=== PATIENT | male | born 1950 | race Caucasian/White ===

== ENCOUNTER 2021-03-22 08:14 | Inpatient (IN) ==
--- NOTE | 2021-03-15 13:49 | PAT Medication Instructions ---
Medication Instructions Date of Service March 15, 2021 Home Medications Medication Instructions Recorded tadalafil 5 mg tablet (Cialis) 5 mg PO DAILY PRN #30 tab 12/06/18 tamsulosin 0.4 mg capsule 0.4 mg PO HS #90 cap 11/15/20 aspirin 81 mg tablet,delayed release 81 mg PO DAILY multivitamin 1 tab PO QAM methotrexate sodium 2.5 mg tablet 12.5 mg PO WEEKLY tadalafil 5 mg tablet (Cialis) 5 mg PO DAILY PRN esomeprazole magnesium 20 mg capsule,delayed release (Nexium) 40 mg PO QAM abatacept (with maltose) 250 mg intravenous solution (Orencia (with maltose)) 10 mg/kg IV UD cetirizine 10 mg tablet (Zyrtec) 5 mg PO UD PRN tamsulosin 0.4 mg capsule 0.4 mg PO HS fluticasone propionate 50 mcg/actuation nasal spray,suspension 2 spray INTRANASAL UD PRN folic acid 1 mg tablet 1 mg PO QAM olmesartan 40 mg tablet (Benicar) 40 mg PO QAM omega-3 acid ethyl esters 1 gram capsule 1 cap PO QAM ASK your prescriber and surgeon aspirin 81 mg tablet,delayed release 81 mg PO DAILY methotrexate sodium 2.5 mg tablet 12.5 mg PO WEEKLY abatacept (with maltose) 250 mg intravenous solution (Orencia (with maltose)) 10 mg/kg IV UD STOP taking 2 weeks before surgery (or as soon as possible if surgery is within 2 weeks) omega-3 acid ethyl esters 1 gram capsule 1 cap PO QAM DO NOT take the morning of surgery multivitamin 1 tab PO QAM tadalafil 5 mg tablet (Cialis) 5 mg PO DAILY PRN cetirizine 10 mg tablet (Zyrtec) 5 mg PO UD PRN folic acid 1 mg tablet 1 mg PO QAM olmesartan 40 mg tablet (Benicar) 40 mg PO QAM Take morning of surgery With a small sip of water, OTHERWISE NOTHING TO EAT OR DRINK AFTER MIDNIGHT: esomeprazole magnesium 20 mg capsule,delayed release (Nexium) 40 mg PO QAM fluticasone propionate 50 mcg/actuation nasal spray,suspension 2 spray INTRANASAL UD PRN (if needed) Take evening before surgery tadalafil 5 mg tablet (Cialis) 5 mg PO DAILY PRN (if needed) cetirizine 10 mg tablet (Zyrtec) 5 mg PO UD PRN (if needed) tamsulosin 0.4 mg capsule 0.4 mg PO HS fluticasone propionate 50 mcg/actuation nasal spray,suspension 2 spray INTRANASAL UD PRN (if needed) Other Notes If you have any questions please call us at [phone] or [phone] or [phone] or [phone]
--- NOTE | 2021-03-18 08:16 | Anesthesiology Consultation ---
Date of Service March 18, 2021 Assessment & Plan (1) Encounter for pre-operative examination: - Case discussed with Dr. Sharif including CXR findings, he advised given patient's functional status without cardiopulmonary symptoms, no further testing or evaluation needed and patient acceptable to proceed as scheduled. - COVID screening: Per assessment on 03/18/2021: Travel screen negative, no known COVID-19 positive contacts or current COVID-19 related symptoms. Patient vaccinated. Surgeon arranging preop COVID testing, completed today at PAT appointment. Awaiting results. Chart Review Chart Review: Acceptable Risk for Surgery and Patient seen in Pre Admission Testing Teaching & Discussion Pre-Anesthesia Teaching/Discussion Notes: Instructed NPO after midnight before surgery, except medications with 15 cc of water. Medication instructions provided according to the [facility] guidelines. History Surgery Operation Date: 03/22/21 08:00 Proposed Procedures p Right Femoral to Popliteal Artery Bypsas Graft - Thanh Worthy MD Height/Weight Height: 5 ft 10.5 in Weight: 91.9 kg Allergies Allergy/AdvReac Type Severity Reaction Status Date / Time No Known Allergies Allergy Verified 03/15/21 07:59 Medications Home Medications Medication Instructions Recorded Confirmed Last Taken aspirin 81 mg tablet,delayed 81 mg PO DAILY #90 tab 11/28/18 03/15/21 Unknown release multivitamin 1 tab PO QAM 11/28/18 03/15/21 Unknown methotrexate sodium 2.5 mg tablet 12.5 mg PO WEEKLY tab 12/04/18 03/15/21 Unknown tadalafil 5 mg tablet (Cialis) 5 mg PO DAILY PRN #30 tab 12/06/18 03/15/21 Unknown esomeprazole magnesium 20 mg 40 mg PO QAM 06/30/19 03/15/21 Unknown capsule,delayed release (Nexium) abatacept (with maltose) 250 mg 10 mg/kg IV UD ea 10/13/19 03/15/21 Unknown intravenous solution (Orencia (with maltose)) cetirizine 10 mg tablet (Zyrtec) 5 mg PO UD PRN tab 06/24/20 03/15/21 Unknown tamsulosin 0.4 mg capsule 0.4 mg PO HS #90 cap 11/15/20 03/15/21 Unknown fluticasone propionate 50 2 spray INTRANASAL UD PRN 03/15/21 03/15/21 Unknown mcg/actuation nasal spray,suspension folic acid 1 mg tablet 1 mg PO QAM 03/15/21 03/15/21 Unknown olmesartan 40 mg tablet (Benicar) 40 mg PO QAM 03/15/21 03/15/21 Unknown omega-3 acid ethyl esters 1 gram 1 cap PO QAM 03/15/21 03/15/21 Unknown capsule Past Medical History Medical History (Updated 03/18/21 @ 14:41 by Carmen Owens PA-C) AAA (abdominal aortic aneurysm) 3.4 x 3.2 cm saccular abdominal aortic aneurysm with mild atherosclerotic changes on 07/[address] of the chest subpleural reticulation in lung field periphery bilat with associated traction bronchiectasis with both intra and interlobular thickening likely interstitial lung disease per 09/2020 CT, following with pulmonology [facility]- monitoring per pt annually Allergic rhinitis Chronic nasal congestion, post nasal drip and cough productive of mucus BPH (benign prostatic hyperplasia) Chronic GERD controlled, stable per pt Generalized osteoarthritis History of COVID-19 03/2020-achiness, [id number] after several days HTN (hypertension) controlled, stable per pt Rheumatoid arthritis Follows with rheumatology [facility], last visit 11/2020 Patient denies h/o stroke, seizures, heart attack, heart failure, DM, blood clots or blood transfusions. Exercise / Class Metabolic Activity II 4-5 Yardwork/Stairs/Walk up hill (no CP or SOB with 1 FOS) Past Family History Family History Mother Heart disease Lung cancer Father Bone cancer Lung cancer Aunt Rheumatoid arthritis Denies family history of Ovarian cancer Prostate cancer Myocardial infarction Breast cancer Colorectal cancer Past Surgical History Surgical History History of cholecystectomy History of colonoscopy History of esophagogastroduodenoscopy (EGD) History of parotidectomy Past Anesthesia History No Hx of Anesthesia Complications and Other (mother reported difficulty waking- no re-intubation) History of PONV No Hx of PONV and No Hx of Motion Sickness Social History Smoking Status: Current some day smoker tobacco type: cigarettes Smoking cigarettes per day: maybe 1 or 2 cigarettes in the mornings with coffee- advised NPO Do You Dip or Chew Tobacco: No Hx Alcohol Use: Yes Alcohol type: beer and hard liquor alcohol intake frequency: 0-2 drinks per day Hx Substance Use: No substance use type: does not use Review of Systems Snoring and h/o witnessed apneas, reports sleep studies negative per pt. Patient denies chest pain, shortness of breath, dyspnea on exertion, fever, chills, cough, wheezing, or palpitations. Physical Exam Vital Signs Vitals BP 102/68 P 67 TEMP 98.0 SP02 96% on RA RESP 16 Physical Severe limitation of cervical extension-minimal ROM TMD 3.5 finger breaths Mallampati Score 2 Dentition: intact, denies missing, loose or chipped teeth; denies caps/crowns, implants or bridges Lungs: normal respiratory effort. Clear throughout to auscultation, no adventitious breath sounds Cardiac: regular rate and rhythm, no murmurs noted Carotid arteries: negative bruit bilat Extremities: no distal extremity edema Lab Results Anesthesia Preop Results Results Anesthesia Widget: WBC 7.27 K/uL (4.8-10.8) 03/18/21 Hgb 15.4 g/dL (14.0-18.0) 03/18/21 Hct 45.5 % (42-52) 03/18/21 Plt 285 K/uL (130-400) 03/18/21 Na 135 mmol/L (136-145) L 03/18/21 K 4.0 mmol/L (3.5-5.1) 03/18/21 Cl 103 mmol/L (98-107) 03/18/21 CO2 26 mmol/L (21-32) 03/18/21 BUN 27 mg/dl (7-18) H 03/18/21 Creat 1.32 mg/dl (0.6-1.4) 03/18/21 Glucose Level 121 mg/dl (70-99) H 03/18/21 PT 10.4 Seconds (9.0-12.0) 03/18/21 PTT 27.1 Seconds (21.0-31.0) 03/18/21 INR 1.0 (0.9-1.1) 03/18/21 Blood Type A Positive 03/18/21 Antibody Screen NEGATIVE 03/18/21 Testing Electrocardiogram Date: 03/18/21 Normal sinus rhythm, rate 66 bpm. Normal ECG No previous ECGs available Confirmed by Cosmo Michaels. Chest X-Ray Date: 03/18/21 The heart is enlarged noting atherosclerotic calcification of the thoracic aorta. The pulmonary vasculature is noncongested. Enlargement of the central pulmonary arteries suggests pulmonary artery hypertension. Emphysema is noted. Interstitial thickening is likely chronic. There is scarring/atelectasis seen at both lung bases. No airspace consolidation typical for pneumonia or pleural effusion is identified. There is no pneumothorax. The skeletal structures are osteopenic. The bony thorax appears intact. Degenerative changes noted throughout the thoracic spine. Cholecystectomy clips are noted in the upper abdomen. IMPRESSION: Cardiomegaly and emphysema with no acute cardiopulmonary abnormality identified. Stress Test Date: 08/09/18 METS 7. MPHR 86%. The exercise echocardiographic examination is normal without resting left ventricular wall motion abnormalities or inducible ischemia. EF 55-59%. Isolated basal septal hypertrophy with maximal thickness of 1.3 cm. No significant valvular pathology. Aortic root is mildly enlarged. Spectral Doppler signal is inadequate to calculate right ventricular and pulmnary [sic] artery systolic pressure. Cervical Spine X-ray 11/24/2020 [facility]: FINDINGS No visible fracture. AP alignment is normal. No dynamic instability is appreciated. Multilevel degenerative disc disease, most pronounced at C6-C7 with disc space narrowing, subchondral sclerosis and marginal osteophyte formation. Facet and uncovertebral joint arthropathy noted. Suboptimal posi tioning of oblique views to accurately assess for neuroforaminal stenosis. Suspect some degree of narrowing bilaterally. Soft tissues are unremarkable. IMPRESSION No dynamic instability. Degenerative changes as above, most pronounced at C6- C7.
--- NOTE | 2021-03-21 15:10 | History & Physical Report ---
Date of Service March 21, 2021 Assessment & Plan (1) Popliteal artery embolism, right: Plan: Popliteal aneurysm At this point his anterior tibial artery on the right has a high origin. This makes him a bad candidate for an endograft. He will need a femoral-popliteal bypass with ligation of the popliteal artery aneurysm on the right. The left side being its a small size we will continue to follow this conservatively. He understands the risks options and benefits of repairing the popliteal artery aneurysm with a femoral-popliteal bypass. He is agreeable to go ahead with the right femoral-popliteal bypass graft. History of Present Illness Chief Complaint: Right Popliteal artery aneurysm Primary Care Provider: Colten Evans DO Mr. English is a middle-aged male who was seen in consultation for an incidentally noted popliteal artery aneurysm. Patient states that he went to see his orthopod for evaluation of right knee discomfort that he had been experiencing. He also noted some swelling in the right knee and leg. 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 Patient states that he did not know of this aneurysm prior to this. He does state however that he has been undergoing regular aortoiliac ultrasound surveillance for an abdominal aortic aneurysm for about 6 years. Patient states that his right knee pain and swelling has improved in the last 1 to 2 weeks. He states he did not have a known definite injury to his right knee. Patient states that he had a spine/disc injury many years ago which has caused atrophy of the muscles in his left calf, but does not cause him chronic pain. Patient denies other complaints at this time including headaches, fever, chills, chest pain, shortness of breath, abdominal pain, nausea, vomiting, rest pain, claudication, nonhealing wounds or ulcers, discoloration of the feet or toes, other complaints. Allergies Allergy/AdvReac Type Severity Reaction Status Date / Time No Known Allergies Allergy Verified 03/15/21 07:59 Home Medications Medication Instructions Recorded Confirmed Type aspirin 81 mg tablet,delayed 81 mg PO DAILY #90 tab 11/28/18 03/15/21 History release multivitamin 1 tab PO QAM 11/28/18 03/15/21 History methotrexate sodium 2.5 mg tablet 12.5 mg PO WEEKLY tab 12/04/18 03/15/21 History tadalafil 5 mg tablet (Cialis) 5 mg PO DAILY PRN #30 tab 12/06/18 03/15/21 Rx esomeprazole magnesium 20 mg 40 mg PO QAM 06/30/19 03/15/21 History capsule,delayed release (Nexium) abatacept (with maltose) 250 mg 10 mg/kg IV UD ea 10/13/19 03/15/21 History intravenous solution (Orencia (with maltose)) cetirizine 10 mg tablet (Zyrtec) 5 mg PO UD PRN tab 06/24/20 03/15/21 History tamsulosin 0.4 mg capsule 0.4 mg PO HS #90 cap 11/15/20 03/15/21 Rx fluticasone propionate 50 2 spray INTRANASAL UD PRN 03/15/21 03/15/21 History mcg/actuation nasal spray,suspension folic acid 1 mg tablet 1 mg PO QAM 03/15/21 03/15/21 History olmesartan 40 mg tablet (Benicar) 40 mg PO QAM 03/15/21 03/15/21 History omega-3 acid ethyl esters 1 gram 1 cap PO QAM 03/15/21 03/15/21 History capsule Past Med/Surg History Medical History AAA (abdominal aortic aneurysm) 3.4 x 3.2 cm saccular abdominal aortic aneurysm with mild atherosclerotic changes on 07/[address] of the chest subpleural reticulation in lung field periphery bilat with associated traction bronchiectasis with both intra and interlobular thickening likely interstitial lung disease per 09/2020 CT, following with pulmonology [facility]- monitoring per pt annually Allergic rhinitis Chronic nasal congestion, post nasal drip and cough productive of mucus BPH (benign prostatic hyperplasia) Chronic GERD controlled, stable per pt Generalized osteoarthritis History of COVID-19 03/2020-achiness, [id number] after several days HTN (hypertension) controlled, stable per pt Rheumatoid arthritis Follows with rheumatology [facility], last visit 11/2020 Surgical History History of cholecystectomy History of colonoscopy History of esophagogastroduodenoscopy (EGD) History of parotidectomy Family History Mother Heart disease Lung cancer Father Bone cancer Lung cancer Aunt Rheumatoid arthritis Denies family history of Ovarian cancer Prostate cancer Myocardial infarction Breast cancer Colorectal cancer Social History Smoking Status: Current some day smoker Age Started Using Tobacco: 19; Cigarettes Per Day: maybe 1 or 2 cigarettes in the mornings with coffee-advised NPO; Second Hand Exposure: Yes; Hx Alcohol Use: Yes Alcohol type: beer and hard liquor Hx Substance Use: No Preferred Language: Portuguese Communication Ability: Effective Visual Impairment: No Limitations Hearing Ability: Normal Road Patcher Required: No Beliefs That Will Affect Care: None marital status: Current Living Situation: Spouse current occupational status: retired Feels Safe at Home: Yes Childhood Exposure to Second-Hand Smoke: Yes caffeine: Yes (coffee) during the past year weight has: remained stable Dental Care, Regularly: Yes Physical Activity Frequency: Daily Seatbelt Use: always Sunscreen Use: No Do you think of yourself as: straight/heterosexual Assistive Devices: Glasses Physical Exam Physical Exam: Constitutional: In general patient is a healthy-appearing well- nourished well-developed middle-aged male no distress. He is alert and oriented without any focal deficits. Has normocephalic and atraumatic. Eyes are EOMI. Neck is supple nontender with a midline trachea. Heart is regular, lungs are decreased but clear throughout. Abdomen is soft and nontender with normoactive bowel sounds in all 4 quadrants. I am not able to appreciate his pulsatile mass due to body habitus. Brachial radial and femoral pulses are +3. Right popliteal pulse is palpable. Lower extremity distal pulses are +1. He has b risk capillary refill and no sign of distal ischemia. His left calf muscles are significantly atrophied in comparison to his right. There is no edema noted. There is no erythema.
[~2021-03-22 08:14] MED LIST: ACETAMINOPHEN 1000 MG/100 ML IV IV ONE; BUPIVACAINE 0.5 % 5 MG/1 ML MPF 30ML VIAL ONE; EPINEPHrine INJ 1 MG/ML AMP ONE; GELATIN SPONGE SZ 100 ONE; HEPARIN (PORCINE) 1000 UNIT/ML 10 ML (CATH LAB USE ONLY) ONE; LACTATED RINGER'S 1,000 ML IV SCH; LIDOCAINE 1% LOCAL 20 ML VIAL ONE; LIDOCAINE 2% 2 ML VIAL/AMP(20MG/ML) INFIL ONE; MIDAZOLAM HCL 1 MG/ML 2ML VIAL ONE; ONDANSETRON INJ 2 MG/ML 2 ML VIAL ONE; PAPAVERINE HCL INJ 30 MG/ML 2 ML VIAL ONE; PROPOFOL IV EMULSION 10 MG/ML 20 ML VIAL IV ONE; ROCURONIUM BROMIDE 10 MG/ML 5 ML VIAL IV ONE; THROMBIN 5000 UNITS KIT ONE; THROMBIN FOR SOLN 20000 UNIT KIT ONE; ceFAZolin 2000MG 2,000 MG/15 ML SYR IV SCH; fentaNYL citrate 100 MCG/2 ML VIAL ONE
[2021-03-22] MEDS ORDERED: fentaNYL citrate 100 MCG/2 ML VIAL IV PRN (08:27)
[2021-03-22] MEDS ORDERED: ONDANSETRON INJ 2 MG/ML 2 ML VIAL IV PRN (08:27)
[2021-03-22] MEDS ORDERED: ePHEDrine sulfate 50 MG/ML AMP IV PRN (08:27)
[2021-03-22] MEDS ORDERED: ATROPINE SULFATE 0.1 MG/ML 10ML SYR IV PRN (08:27)
--- NOTE | 2021-03-22 09:23 | History & Physical Bridge Note ---
Date of Service March 22, 2021 History & Physical Bridge Note I have examined the patient, reviewed the History & Physical and in the interval since the performance of the History & Physical I have noted the following changes of clinical significance: no changes noted
[2021-03-22] MEDS ORDERED: fentaNYL citrate 100 MCG/2 ML VIAL ONE ×3 (10:21→13:35)
[2021-03-22] MEDS ORDERED: HEPARIN (PORCINE) 1000 UNIT/ML 10 ML (CATH LAB USE ONLY) IV ONE (11:22)
[2021-03-22] MEDS ORDERED: HEPARIN SOD (PORCINE) 1000 UNIT/ML ONE ×3 (11:23→12:45)
[2021-03-22] MEDS ORDERED: ROCURONIUM BROMIDE 10 MG/ML 5 ML VIAL IV ONE ×5 (11:30→12:46)
[2021-03-22] MEDS ORDERED: SUGAMMADEX SODIUM 200 MG/2 ML VIAL IV ONE (12:59)
--- NOTE | 2021-03-22 13:23 | Operative Report ---
Post Operative Report Pre & Post Diagnosis Operation Date: 03/22/21 10:30 Pre-Op Diagnosis: Right Popliteal Artery Aneurysm Post-Op Diagnosis: Right Popliteal Artery Aneurysm I identified the patient and participated in the time-out.: Yes Procedure Operation Date: 03/22/21 10:30 Actual Procedures p Right Femoral to Popliteal Artery Bypass with reverse saphenous vein, reimplantation of anterior tibial artery (Right) - Thanh Worthy MD Surgeon Thanh Worthy MD Director Of Student Financial Aid [place],PAC Estimated Blood Loss 150 Findings Consistent with Post-Op Diagnosis Specimens none Anesthesia Type General Complications none Disposition Accompanied Patient To Recovery: No Disposition: Recovery Room Indications This is a 70-year-old male who was found to have a popliteal artery aneurysm in the right leg which is grown. Repair is recommended. He is not an endovascular candidate due to the takeoff of the anterior tibial artery is fairly high. I have discussed the risks options and benefits of the procedure with the patient. The patient understands the risks options and benefits and agrees to the procedure. Description of Procedure The patient was taken the operating placed supine position. After general anesthesia was accomplished the right leg was prepped and draped in a sterile manner. Longitudinal incision was made over the saphenous vein in the lower thigh. Sizing was identified at that level it was of good caliber. Dissection was carried down to where the popliteal artery was identified just beyond the adductor hiatus. None the lower part of the dissection we could see the start of the aneurysm. The superficial femoral artery did take a angulation at that point towards the aneurysm. We then unroofed the saphenous vein from the upper thigh down to the upper calf. At the level of the upper calf as the psych section was deepened and the popliteal arteries identified. The anterior tibial artery was also identified coming off high and just beyondthe bottom of the aneurysm. There was a short distance seen between the bottom of the aneurysm and the take of the anterior tibial artery. It was decided that we would do a femoral-popliteal bypass to the distal popliteal and then reimplant the anterior tibial artery. Saphenous vein was then harvested in its entirety and for the length of the incision. All side branches were ligated. Once was harvested was gently dilated on the back table. No extravasation of saline was seen. Patient was then heparinized at that time. After adequate residuals accomplished the saphenous vein was brought to the operative field. A tunnel was then made between the heads of the gastrocnemius from the upper to the lower incision the saphenous vein passed through the tunnel. It was reversed in the appropriate fashion. The proximal popliteal arteries then clamped proximal distally in the distal thigh just beyond the adduc adductor hiatus. A longitudinal arteriotomy was then made. The artery is widely patent with some slight thickening but no narrowing was noted. The saphenous vein was then beveled in appropriate fashion and an end-to-side anastomosis accomplished using 5-0 Prolene suture in the usual vascular fashion. Once this was completed the popliteal artery was then clamped proximal distally. Longitudinal arteriotomy was then made. Again slight thickening was seen of the artery but no significant narrowing was noted. The saphenous vein was then beveled the appropriate fashion. End-to-side anastomosis accomplished in the saphenous vein in the distal popliteal artery with using a 6-0 Prolene suture in usual vascular fashion. Prior to completing the closure backbleeding for bleeding was allowed to occur to find few sutures in place and securely tied. Clamps were removed. Adequate hemostasis was noted of the suture lines. We then ligated the popliteal artery proximally just beyond the aneurysm sac as well as the anterior tibial artery just beyond its o rigin. The anterior tibial artery was then clamped and divided. The saphenous vein graft was then reclamped just proximal to its anastomosis to the popliteal artery. Longitudinal venotomy was performed. An end-to-side anastomosis was then accomplished between the anterior tibial artery and the saphenous vein reimplanting the artery into the bypass. This was done with 7-0 Prolene. This was done in the usual vascular fashion. Prior to completing the closure backbleeding and forebleeding was allowed to occur. Final few sutures were then placed and securely tied. Clamps were removed. Excellent flow was seen through the anterior tibial artery and through the bypass graft. We then ligated the popliteal artery just beyond the proximal anastomosis. No Doppler flow was heard in the popliteal artery beyond the ligation. Patient had good palpable dorsalis pedis and posterior tibial artery pulses at this point. Wound was irrigated with antibiotic solution. After adequate hemostasis was obtained, the wound was closed in usual fashion using running 3-0 Vicryl suture for subcutaneous layer and alejandra for the skin. Sterile dressings were placed on the wound.The patient left the operation room in satisfactory condition and tolerated the procedure well. All needle and sponge counts were correct at the end of the procedure. Sherrie Salinas Pac assisted due to lack of resident availability and was necessary for positioning, draping, retraction, wound closure deep layers, subcutaneous tissue, and skin closure and was necessary for assisting with the case. I attest to the content of the Intraoperative Record and any orders documented therein. Any exceptions are noted below.
[2021-03-22] MEDS ORDERED: MoRPHine SULFATE 4 MG/ML 1 ML CARP\\VIAL IV PRN (14:49)
[2021-03-22] MEDS ORDERED: [UNRECOGNIZED DRUG - OTHER] IV SCH (14:49)
[2021-03-22] MEDS ORDERED: CETIRIZINE HCL 10 MG TABLET PO PRN (14:49)
[2021-03-22] MEDS ORDERED: FLUTICASONE PROPIONATE NA SPR 16 GM BTL PRN (14:49)
[2021-03-22 15:17] LABS: Basophils # (auto) 0.02 K/uL (0-0.2); Basophils % (auto) 0.2 %; Eosinophils # (auto) 0.07 K/uL (0-0.5); Eosinophils % (auto) 0.7 %; Hematocrit (blood only) 41.3 % (42-52); Hemoglobin 13.9 g/dL (14.0-18.0); Immature Granulocytes # (auto) 0.01 K/uL (0.00-0.02); Immature Granulocytes % (auto) 0.1 %; Lymphocytes # (auto) 2.12 K/uL (1.2-3.4); Lymphocytes % (auto) 21.1 %; Mean Corpuscular Hemoglobin 31.2 pg (25-34); Mean Corpuscular Volume 92.6 fL (80-100); Monocytes # (auto) 0.71 K/uL (0.11-0.59); Monocytes % (auto) 7.1 %; Neutrophils # (auto) 7.13 K/uL (1.4-6.5); Neutrophils % (auto) 70.8 %; Platelet Count 243 K/uL (130-400); RDW Standard Deviation 47.2 fL (36.4-46.3); Red Blood Count 4.46 M/uL (4.7-6.1); White Blood Count 10.06 K/uL (4.8-10.8)
[2021-03-22 15:23] LABS: Mean Corpuscular Hgb Conc 33.7 g/dL (32-36)
[2021-03-22] MEDS: D5W AND 1/2NSS 1,000 ML IV SCH ×2 (15:55→23:47)
[2021-03-22] MEDS: oxyCODONE/ACETAMINOPHEN 5mg/325mg TAB PO PRN ×2 (15:56→23:43)
[2021-03-22] MEDS: TAMSULOSIN HCL 0.4 MG CAP PO SCH (20:10)
[2021-03-22] MEDS: ceFAZolin 2000MG 2,000 MG/15 ML SYR IV SCH (20:44)
[2021-03-23] MEDS: ceFAZolin 2000MG 2,000 MG/15 ML SYR IV SCH (05:38)
[2021-03-23 05:47] LABS: Basophils # (auto) 0.01 K/uL (0-0.2); Basophils % (auto) 0.1 %; Eosinophils % (auto) 1.4 %; Hematocrit (blood only) 38.9 % (42-52); Hemoglobin 13.1 g/dL (14.0-18.0); Immature Granulocytes # (auto) 0.01 K/uL (0.00-0.02); Immature Granulocytes % (auto) 0.1 %; Lymphocytes # (auto) 1.51 K/uL (1.2-3.4); Lymphocytes % (auto) 21.4 %; Mean Corpuscular Hemoglobin 31.5 pg (25-34); Mean Corpuscular Hgb Conc 33.7 g/dL (32-36); Mean Corpuscular Volume 93.5 fL (80-100); Mean Platelet Volume 8.8 fL (7.4-10.4); Monocytes % (auto) 11.3 %; Neutrophils # (auto) 4.63 K/uL (1.4-6.5); Neutrophils % (auto) 65.7 %; Platelet Count 235 K/uL (130-400); RDW Coefficient of Variation 14.2 % (11.5-14.5); RDW Standard Deviation 48.1 fL (36.4-46.3); Red Blood Count 4.16 M/uL (4.7-6.1); White Blood Count 7.06 K/uL (4.8-10.8)
[2021-03-23 06:19] LABS: BUN Creatinine Ratio 17.5 (10-20); Calcium 8.2 mg/dl (8.5-10.1); Creatinine Clr Calc Pharmacy 75.4 ml/min; Est GFR (African American) 82.6 ml/min; Est GFR (Non-African American) 71.3 ml/min
--- NOTE | 2021-03-23 06:33 | Anesthesiology Progress Note ---
Date of Service March 23, 2021 Anesthesia Post Procedure Vital Signs Vital Signs: Temp Pulse Pulse Pulse Resp BP BP 03/23/21 04:32 36.5 C 71 16 129/73 03/22/21 23:20 36.7 C 66 17 124/78 03/22/21 20:00 36.8 C 70 16 124/72 03/22/21 17:51 36.3 C L 73 16 126/74 03/22/21 16:45 36.5 C 64 16 114/71 03/22/21 15:45 36.4 C L 67 16 109/68 03/22/21 15:17 67 18 112/70 03/22/21 14:45 36.5 C 75 16 109/72 03/22/21 14:25 75 16 120/75 03/22/21 14:15 36.7 C 74 16 123/73 03/22/21 14:05 85 16 116/75 03/22/21 13:55 68 16 99/64 L 03/22/21 13:49 36.6 C 70 16 99/58 L 03/22/21 08:56 36.4 C L 69 20 141/85 H 134/83 Pulse Ox 03/23/21 04:32 96 03/22/21 23:20 97 03/22/21 20:00 95 03/22/21 17:51 97 03/22/21 16:45 99 03/22/21 15:45 97 03/22/21 15:17 96 03/22/21 14:45 96 03/22/21 14:25 94 03/22/21 14:15 97 03/22/21 14:05 97 03/22/21 13:55 98 03/22/21 13:49 97 03/22/21 08:56 97 Pain Intensity Bilateral Shoulder: Pain Intensity: 4 Back: Pain Intensity: 6 Transfer of Care Handoff Completed per policy Notes Mental Status: alert / awake / arousable and participated in evaluation Patient Amnestic to Procedure: Yes Nausea / Vomiting: adequately controlled Pain: adequately controlled Airway Patency, RR, SpO2: stable & adequate BP & HR: stable & adequate Hydration State: stable & adequate Anesthetic Complications: no major complications apparent and Pt Satisfied with anesthetic care
[2021-03-23] MEDS: oxyCODONE/ACETAMINOPHEN 5mg/325mg TAB PO PRN ×4 (07:55→23:55)
[2021-03-23] MEDS: FOLIC ACID 1 MG TAB PO SCH (07:56)
[2021-03-23] MEDS: OMEGA-3 (PURIFIED FISH OIL) 1 GM CAP PO SCH (07:56)
[2021-03-23] MEDS: OLMESARTAN MEDOXOMIL 40 MG TAB PO SCH (07:56)
[2021-03-23] MEDS: PANTOprazole 40 MG TAB PO SCH (07:56)
[2021-03-23] MEDS: MULTIVITAMIN TAB PO SCH (07:57)
[2021-03-23] MEDS: ASPIRIN 81 MG ECTAB PO SCH (07:57)
[2021-03-23] MEDS: D5W AND 1/2NSS 1,000 ML IV SCH (10:02)
[2021-03-23] MEDS ORDERED: SODIUM CHLORIDE 0.9% 1000ML 1,000 ML IV SCH (13:29)
--- NOTE | 2021-03-23 16:28 | Surgery Progress Note ---
Date of Service March 23, 2021 Assessment & Plan (1) Popliteal artery aneurysm: Plan: Pt overall doing well post op. Taking PO, voiding since pablo removal, passing flatus, ambulating. Still with post op pain and episodic hypotension today. Discussed with Dr Worthy, 1L NSS bolus ordered. Admission and Anticipated Discharge Date Admission Date: March 22, 2021 Subjective 70 yo m POD #1 after RLE above knee pop to below knee popliteal artery reverse saphenous vein bypass with reimplantation of the anterior tibial artery, seen in f/u today. Pt doing well post op, but did have an episode of lightheadedness and hypotension this afternoon. Hgb stable, BP has been stable other than this single episode. Pt states he did not drink much today. Admits fatigue and RLE incisional pain. Review of Systems Review of Systems: All systems reviewed & are unremarkable except as noted in HPI & below Physical Exam Constitutional: WD/WN, vitals as above healthy appearing and comfortable Respiratory: normal respiratory effort, lungs clear to auscultation Auscultation: + diminished lung sounds Cardiovascular: Rate/Rhythm: regular rate and regular rhythm Vessels: femoral pulses present, posterior tibial pulses present, dorsalis pedis pulses present and radial pulses present; + abnormal peripheral pulses Extremities: normal capillary refill and + edema (mild RLE) Gastrointestinal (Abdomen): Inspection/Auscultation: abdomen normal to inspection and normal bowel sounds Percussion/Palpation: abdomen soft; abdomen nontender Musculoskeletal: no cyanosis or clubbing, extremities motor strength 5/5 Skin: + incision (C/D/I with alejandra) Neurologic: moves all extremities and awake; no focal motor deficits and not confused Psychiatric: A+Ox3, euthymic affect Results & Data ([facility]) Vital Signs (Past 12 Hours) Vital Signs Temp Pulse Resp BP BP Pulse Ox 03/23/21 15:20 36.7 C 79 16 126/74 97 03/23/21 13:17 63 18 126/75 100 03/23/21 12:44 36.4 C L 61 16 93/58 L 98 03/23/21 11:13 36.8 C 75 16 104/65 97 03/23/21 07:31 36.7 C 74 16 133/76 97 03/23/21 04:32 36.5 C 71 16 129/73 96
[2021-03-23] MEDS: ENOXAPARIN INJ 30 MG/0.3 ML SYR SQ SCH (19:55)
[2021-03-23] MEDS: TAMSULOSIN HCL 0.4 MG CAP PO SCH (20:36)
[2021-03-24] MEDS: PANTOprazole 40 MG TAB PO SCH (07:22)
[2021-03-24] MEDS: OLMESARTAN MEDOXOMIL 40 MG TAB PO SCH (07:22)
[2021-03-24] MEDS: ASPIRIN 81 MG ECTAB PO SCH (07:23)
[2021-03-24] MEDS: FOLIC ACID 1 MG TAB PO SCH (07:23)
[2021-03-24] MEDS: MULTIVITAMIN TAB PO SCH (07:23)
[2021-03-24] MEDS: OMEGA-3 (PURIFIED FISH OIL) 1 GM CAP PO SCH (07:23)
[2021-03-24] MEDS: ENOXAPARIN INJ 30 MG/0.3 ML SYR SQ SCH ×2 (07:23→20:49)
[2021-03-24 09:18] LABS: Basophils # (auto) 0.01 K/uL (0-0.2); Basophils % (auto) 0.1 %; Eosinophils % (auto) 1.4 %; Hematocrit (blood only) 40.9 % (42-52); Hemoglobin 13.4 g/dL (14.0-18.0); Immature Granulocytes # (auto) 0.01 K/uL (0.00-0.02); Immature Granulocytes % (auto) 0.1 %; Lymphocytes # (auto) 1.12 K/uL (1.2-3.4); Lymphocytes % (auto) 15.2 %; Mean Corpuscular Hemoglobin 30.9 pg (25-34); Mean Corpuscular Hgb Conc 32.8 g/dL (32-36); Mean Corpuscular Volume 94.5 fL (80-100); Mean Platelet Volume 9.1 fL (7.4-10.4); Monocytes # (auto) 0.94 K/uL (0.11-0.59); Monocytes % (auto) 12.8 %; Neutrophils # (auto) 5.17 K/uL (1.4-6.5); Neutrophils % (auto) 70.4 %; Platelet Count 240 K/uL (130-400); RDW Standard Deviation 48.2 fL (36.4-46.3); Red Blood Count 4.33 M/uL (4.7-6.1); White Blood Count 7.35 K/uL (4.8-10.8)
--- NOTE | 2021-03-24 14:15 | Surgery Progress Note ---
Date of Service March 24, 2021 Assessment & Plan (1) S/P femoral-popliteal bypass surgery: Plan: Bypass working well. Continue OT/PT (2) Right leg swelling: Plan: Will order venous duplex (3) Cellulitis of right lower extremity: Plan: Appears to be a superficial cellulitis post op. Will start on IV antibiotics Admission and Anticipated Discharge Date Admission Date: March 22, 2021 Subjective Patient complaining of incisional pain. Relieved with pain meds. He was ambulating with a walker. Physical Exam Constitutional: WD/WN, vitals as above Cardiovascular: Vessels: posterior tibial pulses present (palpable on right) and dorsalis pedis pulses present (palpable on right) Extremities: + edema (right lower extremity more edematous than expected) Musculoskeletal: Extremities: strength 5/5 throughout Skin: + incision (erythematous along thigh incision) Psychiatric: Orientation: alert and oriented x 3 Results & Data ([facility]) Vital Signs (Past 12 Hours) Vital Signs Temp Pulse Resp BP Pulse Ox 03/24/21 07:18 36.6 C 71 16 108/69 97
[2021-03-24] MEDS: ceFAZolin 2000MG 2,000 MG/15 ML SYR IV SCH ×2 (14:41→20:49)
--- NOTE | 2021-03-24 17:00 | Ultrasound Report ---
ULTRASOUND RIGHT LOWER EXTREMITY VENOUS CLINICAL HISTORY: Right lower extremity edema. COMPARISON STUDY: Right lower extremity venous ultrasound dated 12/29/2020. TECHNIQUE: Real-time, grayscale, and color Doppler sonography of the deep veins of the right lower ex tremity was performed from the inguinal crease to the calf. Compression and augmentation were utilize d. FINDINGS: There is no sonographic evidence of deep venous thrombosis identified in the right lower ex tremity. The common femoral, superficial femoral, and popliteal veins are patent and normally sanford sible. The greater saphenous vein and the profunda femoris vein at the junction with the common femor al vein are clear. The visualized calf veins are patent. 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 IMPRESSION: 1. There is no sonographic evidence of deep venous thrombosis identified in the right lower extremity . 2. A popliteal artery aneurysm is again noted. ACT 112: Negative or not required by law. Electronically signed by: Vin Crowder M.D. 03/24/2021 4:58 PM
[2021-03-24] MEDS: oxyCODONE/ACETAMINOPHEN 5mg/325mg TAB PO PRN ×2 (17:21→22:16)
[2021-03-24] MEDS: TAMSULOSIN HCL 0.4 MG CAP PO SCH (20:49)
[2021-03-25] MEDS: ceFAZolin 2000MG 2,000 MG/15 ML SYR IV SCH (05:49)
[2021-03-25] MEDS ORDERED: metHOTREXate sodium 2.5 MG TAB PO SCH (09:00)
[2021-03-25] MEDS: OLMESARTAN MEDOXOMIL 40 MG TAB PO SCH (09:06)
[2021-03-25] MEDS: PANTOprazole 40 MG TAB PO SCH (09:06)
[2021-03-25] MEDS: ASPIRIN 81 MG ECTAB PO SCH (09:07)
[2021-03-25] MEDS: OMEGA-3 (PURIFIED FISH OIL) 1 GM CAP PO SCH (09:07)
[2021-03-25] MEDS: ENOXAPARIN INJ 30 MG/0.3 ML SYR SQ SCH (09:07)
[2021-03-25] MEDS: MULTIVITAMIN TAB PO SCH (10:41)
[2021-03-25] MEDS: FOLIC ACID 1 MG TAB PO SCH (10:41)
[2021-03-25] MEDS: oxyCODONE/ACETAMINOPHEN 5mg/325mg TAB PO PRN (10:44)
--- NOTE | 2021-03-25 13:10 | Surgery Progress Note ---
Date of Service March 25, 2021 Assessment & Plan (1) Cellulitis of right lower extremity: Plan: Improved with 24 hours of antibiotics (2) S/P femoral-popliteal bypass surgery: Plan: Doing well. Graft working well Can D/C today (3) Right leg swelling: Plan: No DVT present. Edema secondary to surgery Admission and Anticipated Discharge Date Admission Date: March 22, 2021 Subjective Feeling much better today. Walked around the halls without too much difficulty. Physical Exam Constitutional: WD/WN, vitals as above Cardiovascular: Vessels: posterior tibial pulses present and dorsalis pedis pulses present Extremities: + edema (slightly better in right leg) Musculoskeletal: no cyanosis or clubbing, extremities motor strength 5/5 Skin: + incision (less erythema today. minimal drainage) Results & Data ([facility]) Vital Signs (Past 12 Hours) Vital Signs Temp Pulse Resp BP Pulse Ox 03/25/21 07:28 36.5 C 70 14 129/75 95
--- NOTE | 2021-03-29 08:30 | Discharge Summary ---
Date of Service March 29, 2021 Admission HPI Per Admitting Provider Mr. English is a middle-aged male who was seen in consultation for an incidentally noted popliteal artery aneurysm. Patient states that he went to see his orthopod for evaluation of right knee discomfort that he had been experiencing. He also noted some swelling in the right knee and leg. 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 Patient states that he did not know of this aneurysm prior to this. He does state however that he has been undergoing regular aortoiliac ultrasound surveillance for an abdominal aortic aneurysm for about 6 years. Patient states that his right knee pain and swelling has improved in the last 1 to 2 weeks. He states he did not have a known definite injury to his right knee. Patient states that he had a spine/disc injury many years ago which has caused atrophy of the muscles in his left calf, but does not cause him chronic pain. Patient denies other complaints at this time including headaches, fever, chills, chest pain, shortness of breath, abdominal pain, nausea, vomiting, rest pain, claudication, nonhealing wounds or ulcers, discoloration of the feet or toes, other complaints. Admission Exam Per Admitting Provider Constitutional: In general patient is a healthy-appearing well-nourished well- developed middle-aged male no distress. He is alert and oriented without any focal deficits. Has normocephalic and atraumatic. Eyes are EOMI. Neck is supple nontender with a midline trachea. Heart is regular, lungs are decreased but clear throughout. Abdomen is soft and nontender with normoactive bowel sounds in all 4 quadrants. I am not able to appreciate his pulsatile mass due to body habitus. Brachial radial and femoral pulses are +3. Right popliteal pulse is palpable. Lower extremity distal pulses are +1. He has brisk capillary refill and no sign of distal ischemia. His left calf muscles are significantly atrophied in comparison to his right. There is no edema noted. There is no erythema. Principal Diagnosis 1. s/p RLE fem-pop reverse saphenous vein bypass with reimplantation of anterior tibial artery and ligation of popliteal artery 2. R popliteal artery aneurysm Discharge Exam Constitutional WD/WN, vitals as above healthy appearing and comfortable Respiratory normal respiratory effort, lungs clear to auscultation Auscultation: + diminished lung sounds Cardiovascular Rate/Rhythm: regular rate and regular rhythm Vessels: femoral pulses present, posterior tibial pulses present, dorsalis pedis pulses present and radial pulses present; + abnormal peripheral pulses Extremities: normal capillary refill and + edema (slightly better in right leg) Gastrointestinal (Abdomen) Inspection/Auscultation: abdomen normal to inspection and normal bowel sounds Percussion/Palpation: abdomen soft; abdomen nontender Musculoskeletal no cyanosis or clubbing, extremities motor strength 5/5 Extremities: strength 5/5 throughout Skin + incision (less erythema today. minimal drainage) Neurologic moves all extremities and awake; no focal motor deficits and not confused Psychiatric A+Ox3, euthymic affect Orientation: alert and oriented x 3 Discharge Data Allergies Allergy/AdvReac Type Severity Reaction Status Date / Time No Known Allergies Allergy Verified 03/22/21 08:46 Procedures Performed Operation Date: 03/22/21 10:30 Actual Procedures p Right Femoral to Popliteal Artery Bypass with reverse saphenous vein, reimplantation of anterior tibial artery (Right) - Thanh Worthy MD Ordered Studies 03/22/21 05:00 US - OR guided needle placemen Routine 03/24/21 14:15 US venous doppler LE RT Urgent Hospital Course (1) Cellulitis of right lower extremity: Improved with 24 hours of antibiotics (2) S/P femoral-popliteal bypass surgery: Doing well POD #3. Graft working well Can D/C home (3) Right leg swelling: No DVT present. Edema secondary to surgery Total Time Total Time Spent Total Time Spent (In Minutes): 0 Discharge Plan Discharge Items Patient Disposition: Home - Self-Care Reason For Visit: Popliteal Artery Aneurysm Discharge Diagnosis: Right popliteal artery aneurysm. Right femoral popliteal bypass Activity: Per Instructions section Lifting: Gradually increase as tolerated Bathing Comment: may shower Non-emergency contact: Surgeon Call non-emergency contact if: your temperature is above 101.5, your wound has increased redness, your wound has increased drainage and your wound pain has increased Follow-up/Referrals: Colten Evans DO [Primary Care Provider] - Thanh Worthy MD [Physician] - 04/07/21 12:45 pm Diet: Heart Healthy Addtl Attending Provider Instructions: ACTIVITY RECOMMENDATIONS: Place dressing on wound if drainage develops. Change as needed. Call if redness worsens. SPECIAL CARE INSTRUCTIONS: Call your doctor if: * Temperature above 101 degrees * Pain not relieved by pain medicine ordered * There is increased drainage or redness from any incision * You have any unanswered questions or concerns. Call [phone] to schedule a follow up appointment if one not already scheduled. Pending Studies at Discharge: No Stand-Alone Forms: My [facility] [email or web address], Smoking Cessation Medications and DC Order Prescriptions: New cephalexin [Keflex] 750 mg capsule 750 mg PO BID 10 Days Qty: 20 RF: 0 oxycodone-acetaminophen [Percocet] 5-325 mg tablet 1 tab PO Q6H PRN (Reason: pain) Qty: 30 RF: 0 Continued tamsulosin 0.4 mg capsule 0.4 mg PO HS Qty: 90 RF: 1 aspirin 81 mg tablet,delayed release (DR/EC) 81 mg PO DAILY Qty: 90 RF: 0 multivitamin tablet 1 tab PO QAM RF: 0 methotrexate sodium 2.5 mg tablet 12.5 mg PO WEEKLY RF: 0 tadalafil [Cialis] 5 mg tablet 5 mg PO DAILY PRN (Reason: sexual activity) Qty: 30 RF: 2 Orencia (with maltose) 250 mg recon soln 10 mg/kg IV UD RF: 0 esomeprazole magnesium [Nexium] 20 mg capsule,delayed release(DR/EC) 40 mg PO QAM RF: 0 cetirizine [Zyrtec] 10 mg tablet 5 mg PO UD PRN (Reason: allergy symptoms) RF: 0 folic acid 1 mg tablet 1 mg PO QAM RF: 0 fluticasone propionate 50 mcg/actuation spray,suspension 2 spray intranasal UD PRN (Reason: Nasal Congestion) RF: 0 olmesartan [Benicar] 40 mg tablet 40 mg PO QAM RF: 0 omega-3 acid ethyl esters 1 gram capsule 1 cap PO QAM RF: 0 Discharge Orders: Discharge Order (Routine); Ordered 03/25/21 Ordered By: Thanh Quarles/Other Patient Handouts: DVT Post Op Prevention Admission Data Admit Date/Time: 03/22/21 09:23 Attending Provider: Thanh Worthy Admit Provider: Thanh Worthy Primary Care Provider: Colten Evans Other Interventions: Discharge Summary Assessment (RN) Last Done: 03/25/21 14:03
== END 2021-03-25 15:06 | disposition home or self-care (01) | DRG 253 ==
LOC: ASU 08:14 → 3N 09:23